=== PATIENT | male | born 1960 | race Caucasian/White ===

== ENCOUNTER 2018-06-28 17:49 | Inpatient (IN) | payer MEDICAID, OTHER ==
[~2018-06-28] VITALS: Ht 180.3 cm; Wt 135.7 kg
[2018-06-28] MEDS ORDERED: cloNIDine HCL 0.1 MG TAB PO ONE ×3 (18:30→23:15)
[2018-06-28 19:38] LABS: Basophils # (auto) 0.1 uL; Basophils % (auto) 0.8 % (0.0-2.0); Eosinophils # (auto) 0.7 uL; Hemoglobin 15.1 g/dL (13.5-17.5); Lymphocytes # (auto) 3.2 uL; Lymphocytes % (auto) 28.6 % (10.0-50.0); Mean Corpuscular Hemoglobin 26.9 pg (28.0-32.0); Monocytes # (auto) 0.9 uL
[2018-06-28 19:41] LABS: Eosinophils % (auto) 6.4 % (0.0-7.0); Hematocrit 45.8 % (41.0-53.0); Mean Corpuscular Hgb Conc. 32.9 g/dL (32.0-36.0); Mean Corpuscular Volume 81.8 fL (80.0-100.0); Monocytes % (auto) 8.6 % (0.0-12.0); Neutrophils # (auto) 6.1 uL; Neutrophils % (auto) 55.6 % (37.0-80.0); Nucleated Red Blood Cells % 0.2 %; Platelet Count (auto) 201 10^3/uL (140-450); Red Cell Distribution Width 15.3 % (11.8-14.3)
[2018-06-28 19:54] LABS: Alanine Aminotransferase 23 U/L (16-61); Albumin 3.5 g/dL (3.4-5.0); Anion Gap 8 (5-15); Aspartate Aminotransferase 19 U/L (15-37); BUN/Creatinine Ratio 9.7; Blood Urea Nitrogen 16 mg/dL (7-18); Calcium 8.4 mg/dL (8.5-10.1); Carbon Dioxide 26 mmol/L (21-32); Chloride 108 mmol/L (98-107); GFR African American 56 mL/min; GFR Non-African American 46 mL/min; Glucose 87 mg/dL (74-106); Potassium 4.4 mmol/L (3.5-5.1); Sodium 142 mmol/L (136-145)
[2018-06-28 20:02] LABS: Alkaline Phosphatase 55 U/L (45-117); Bilirubin, Total 0.3 mg/dL (0.2-1.0); Total Protein 7.3 g/dL (6.4-8.2)
[2018-06-28 21:05] LABS: Amylase 48 U/L (25-115); Lipase 194 U/L (73-393)
[2018-06-28 21:15] LABS: INR 0.94 (0.9-1.15); Partial Thromboplastin Time 28.3 sec (23.78-33.04); Prothrombin Time 10.1 sec (9.27-12.13)
[2018-06-28] MEDS ORDERED: SODIUM CHLORIDE 0.9% 1,000 ML IV ONE (21:45)
[2018-06-28 23:23] LABS: Urine Bacteria FEW /hpf (None Seen); Urine Blood TRACE /uL (Negative); Urine Hyaline Cast FEW /lpf (0 - 2); Urine Specific Gravity 1.021 (1.001-1.035); Urine WBC 2 /hpf (0 - 3)
[2018-06-29] MEDS ORDERED: ONDANSETRON HCL 4 MG/2 ML VIAL IV PRN (00:45)
[2018-06-29] MEDS ORDERED: LORazepam 0.5 MG TAB PO PRN (01:00)
[2018-06-29] MEDS ORDERED: PANTOPRAZOLE 40 MG/10 ML VIAL IV ONE (01:13)
[2018-06-29] MEDS: cloNIDine HCL 0.1 MG TAB PO PRN ×3 (02:04→22:12)
[2018-06-29] MEDS ORDERED: hydrALAZINE HCL 20 MG/ML VL IV ONE (03:30)
[2018-06-29] MEDS ORDERED: ENALAPRILAT 1.25 MG/ML-1ML VIAL IV ONE (04:15)
[2018-06-29] MEDS: metroNIDAZOLE 500MG/100ML 100 ML IV SCH ×3 (06:04→22:13)
[2018-06-29 06:20] VITALS: BP 159/88
--- NOTE | 2018-06-29 06:20 | NUR ---
PATIENT STOOL OCCULT BLOOD SAMPLE COLECTED AND SENT TO LAB. STOOL WAS BURGUNDY/RED IN COLOR.
--- NOTE | 2018-06-29 07:17 | NUR ---
PATIENT STATES THE ONLY HOME MED HE TAKES IS MOTRIN 800 MG. HE IS NON COMPLIANT WITH HIS HOME BLOOD PRESSURE MEDICATION AND DOES NOT KNOW THE NAME OF IT.
--- NOTE | 2018-06-29 07:30 | NUR ---
Opening Shift Note Assumed care of patient, awake and alert, oriented x 4 and verbally responsive. No S/S of distress/SOB or pain. Instructed on POC and to call for assist PRN, will continue to monitor for changes Q1hr and PRN.
--- NOTE | 2018-06-29 07:30 | NUR ---
Opening Shift Note Assumed care of patient, awake and alert. No S/S of distress/SOB or pain. Instructed on POC and to call for assist PRN, will continue to monitor for changes Q1hr and PRN.
[2018-06-29 08:00] VITALS: BP 177/102
--- NOTE | 2018-06-29 08:01 | NUR ---
Patient refused lab drawn.
[2018-06-29] MEDS: PANTOPRAZOLE 40 MG/10 ML VIAL IV SCH (08:58)
[2018-06-29] MEDS: cefTRIAXone 1GM/50ML D5W 50 ML IV SCH (08:59)
[2018-06-29] MEDS: METOPROLOL TARTRATE 25 MG TAB PO SCH ×2 (08:59→20:42)
[2018-06-29 10:53] LABS: Hematocrit 42.5 % (41.0-53.0)
[2018-06-29 15:25] VITALS: BP 128/60
[2018-06-29 17:00] VITALS: BP 121/86
[2018-06-29 20:00] VITALS: BP 151/74
--- NOTE | 2018-06-29 20:43 | NUR ---
PT'S HEART RATE 52;LOPRESSOR HELD. CATAPRESS WILL BE GIVEN INSTEAD.
[2018-06-29 21:31] VITALS: BP 168/98
--- NOTE | 2018-06-30 04:28 | NUR ---
PT REFUSED LAB DRAW.
[2018-06-30 05:00] VITALS: BP 138/79
[2018-06-30] MEDS: metroNIDAZOLE 500MG/100ML 100 ML IV SCH ×3 (05:14→22:35)
--- NOTE | 2018-06-30 08:00 | NUR ---
Opening Shift Note Assumed care of patient, awake, alert and oriented X4. No S/S of distress/SOB or pain. IV to right forearm, 20 gauge, patent and saline locked. Instructed on POC and to call for assist PRN, verbalized understanding. Bed locked, in lowest position, call light within reach, will continue to monitor for changes Q1hr and PRN.
[2018-06-30 09:00] VITALS: BP 151/71
[2018-06-30] MEDS: cefTRIAXone 1GM/50ML D5W 50 ML IV SCH (09:33)
[2018-06-30] MEDS: METOPROLOL TARTRATE 25 MG TAB PO SCH ×2 (10:00→22:00)
[2018-06-30 13:00] VITALS: BP 161/81
[2018-06-30 13:18] LABS: Basophils # (auto) 0.1 uL; Basophils % (auto) 0.8 % (0.0-2.0); Eosinophils # (auto) 0.5 uL; Eosinophils % (auto) 6.5 % (0.0-7.0); Hematocrit 42.4 % (41.0-53.0); Lymphocytes # (auto) 2.2 uL; Lymphocytes % (auto) 26.2 % (10.0-50.0); Mean Corpuscular Hgb Conc. 32.9 g/dL (32.0-36.0); Mean Corpuscular Volume 81.9 fL (80.0-100.0); Monocytes # (auto) 0.7 uL; Monocytes % (auto) 7.9 % (0.0-12.0); Neutrophils # (auto) 4.9 uL; Neutrophils % (auto) 58.6 % (37.0-80.0); Nucleated Red Blood Cells % 0.1 %; Platelet Count (auto) 191 10^3/uL (140-450); Red Blood Cells 5.18 10^6/uL (4.5-5.90); Red Cell Distribution Width 15.2 % (11.8-14.3); White Blood Cell 8.3 10^3/uL (4.4-10.8)
--- NOTE | 2018-06-30 13:37 | NUR ---
ROUNDS Dr Anne Navarrete at bedside for rounds, no new orders received at this time. Plan of care discussed with patient, verbalized understanding.
[2018-06-30] MEDS: PANTOPRAZOLE 40 MG/10 ML VIAL IV SCH (13:42)
[2018-06-30 13:46] LABS: Albumin 3.2 g/dL (3.4-5.0); BUN/Creatinine Ratio 13.8; Calcium 8.5 mg/dL (8.5-10.1); Potassium 3.8 mmol/L (3.5-5.1)
[2018-06-30 13:49] LABS: Bilirubin, Total 0.4 mg/dL (0.2-1.0); Total Protein 6.7 g/dL (6.4-8.2)
[2018-06-30 16:20] VITALS: BP 197/121
[2018-06-30] MEDS: cloNIDine HCL 0.1 MG TAB PO PRN ×2 (16:27→22:10)
[2018-06-30] MEDS ORDERED: RANI-226 (16:56)
[2018-06-30] MEDS ORDERED: IBUP800T24 (16:56)
[2018-06-30] MEDS ORDERED: IPR002IS (16:56)
--- NOTE | 2018-06-30 19:19 | NUR ---
Care endorsed to KERI Davis, night nurse.
--- NOTE | 2018-06-30 19:30 | NUR ---
Opening Shift Note Assumed care of patient, awake and alert. No S/S of distress/SOB or pain. Patient has s/s of high anxiety. Instructed on POC and to call for assist PRN, will continue to monitor for changes Q1hr and PRN.
--- NOTE | 2018-06-30 21:29 | NUR ---
patient is very anxious about IV insertion. Due to failed 1st attempt patient stated that he does not want to be bothered for 2 hours. Explained to patient regard medication due, but patient stated that he does not want anything done to him for 2 hours. Will continue to monitor and administer medication at a later time.
[2018-06-30 22:00] VITALS: BP 180/114
--- NOTE | 2018-06-30 22:40 | NUR ---
IV insertion IV access obtained, via clean sterile technique by inserting 22 gauge catheter at right FA after 2 attempts. IV secured properly. No trauma to site. Patient tolerated well.
--- NOTE | 2018-07-01 05:23 | NUR ---
PATIENT REFUSE THE 5 0CLOCK VITALS SIGNS
[2018-07-01] MEDS: metroNIDAZOLE 500MG/100ML 100 ML IV SCH ×4 (06:20→22:11)
[2018-07-01 08:00] VITALS: BP 148/102
--- NOTE | 2018-07-01 08:00 | NUR ---
Opening Shift Note Assumed care of patient, awake, alert and oriented X4. No S/S of distress/SOB or pain. IV to right forearm, 22 gauge, patent and saline locked. Instructed on POC and to call for assist PRN, verbalized understanding. Bed locked, in lowest position, call light within reach, will continue to monitor for changes Q1hr and PRN.
[2018-07-01] MEDS: PANTOPRAZOLE 40 MG/10 ML VIAL IV SCH (10:00)
[2018-07-01] MEDS: cefTRIAXone 1GM/50ML D5W 50 ML IV SCH (10:00)
[2018-07-01] MEDS: METOPROLOL TARTRATE 25 MG TAB PO SCH ×2 (10:00→22:00)
[2018-07-01] MEDS: cloNIDine HCL 0.1 MG TAB PO PRN ×2 (10:02→22:11)
[2018-07-01 12:37] VITALS: BP 159/118
[2018-07-01 17:07] VITALS: BP 164/106
--- NOTE | 2018-07-01 19:19 | NUR ---
Care endorsed to KERI Davis, night nurse.
[2018-07-01] MEDS ORDERED: GOLYTELY 4L KIT PO ONE ×2 (20:30→21:00)
--- NOTE | 2018-07-01 20:35 | NUR ---
Paged Dr. Jaime regarding Go Lytely order. Orders clarified to administer 2/3 now and 1/3 after 4 am 06/04. Printed Consents and will obtain now also.
[2018-07-01 22:00] VITALS: BP 175/99
--- NOTE | 2018-07-02 | NUR ---
The patient states that he has had multiple BMs but could not describe the appearance of the stool. The patient was instructed leave his next BM in the toilet without flushing to be evaluated. At this time, the 50% of the Go Lytely has been taken by the patient.
[2018-07-02] MEDS ORDERED: GOLYTELY 4L KIT PO ONE ×2 (04:00→12:00)
--- NOTE | 2018-07-02 04:55 | NUR ---
The patient is continuing to drink Go Lytely. 1/3 of the solution still remains. The patient has been encouraged to continue to drink the Go Lytely. He states that he did not have another BM and does not know the appearance of his stool.
[2018-07-02 05:00] VITALS: BP 193/125
--- NOTE | 2018-07-02 05:30 | NUR ---
Patient states that the appearance of his stool is currently yellow and clear.
[2018-07-02] MEDS: metroNIDAZOLE 500MG/100ML 100 ML IV SCH ×3 (06:00→22:00)
--- NOTE | 2018-07-02 07:40 | NUR ---
Patient sitting in bed, awake, oriented x4. No acute distress noted. Patient wearing civilian clothes. Explained to patient he will be wearing hospital gown before the Colonoscopy. Patient verbalized understanding.
--- NOTE | 2018-07-02 07:40 | NUR ---
Care endorsed to KERI Lancaster
[2018-07-02] MEDS: cloNIDine HCL 0.1 MG TAB PO PRN (08:14)
--- NOTE | 2018-07-02 08:14 | NUR ---
BP = 197/84. Catapres 0.1 mg PO given as ordered for SBP>160. Patient refused the Rocephin IV.
[2018-07-02] MEDS: cefTRIAXone 1GM/50ML D5W 50 ML IV SCH (08:16)
[2018-07-02] MEDS ORDERED: SODIUM CHLORIDE LOCK 10 ML ONE (08:29)
[2018-07-02] MEDS ORDERED: diphenhdrAMINE HCL 50 MG/1 ML VL ONE (08:29)
[2018-07-02 08:41] VITALS: BP 197/89
[2018-07-02] MEDS: METOPROLOL TARTRATE 25 MG TAB PO SCH ×2 (10:17→22:04)
--- NOTE | 2018-07-02 10:17 | NUR ---
BP = 197/132, Heart Rate = 61. Metoprolol PO with sips of water given as ordered. Patient stated his blood pressure will always be high. Family member at bedside.
[2018-07-02] MEDS: PANTOPRAZOLE 40 MG/10 ML VIAL IV SCH (10:18)
--- NOTE | 2018-07-02 10:45 | NUR ---
Patient transferred via bed to Pre Op for Colonoscopy. Pre Op RN made aware patient has elevated blood pressure, fear of needles, IV line on the right forearm intact and patent, refused to have a new IV line inserted. Family members at bedside. Endorsed patient to Pre Op RN.
[2018-07-02] MEDS: fentaNYL CITRATE 100 MCG/2 ML VL ONE ×3 (11:50→11:58)
[2018-07-02] MEDS: MIDAZOLAM HCL 5 MG/ML-1ML VIAL ONE ×3 (11:50→11:58)
--- NOTE | 2018-07-02 12:49 | NUR ---
Nutrition Assessment Notes Please see attached link for complete assessment Est. Needs ABW [id number] kcal (17-20 kcal/kgABW), 85-107 gms pro (0.8-1.0 gms/kgABW r/t elev RFT). Will continue to monitor pertinent labs and reassess nutrient needs prn Addendum: 07/02/18 at [address] Amended: Links added.
--- NOTE | 2018-07-02 12:50 | NUR ---
Received report from DIRECTOR OF FEDERAL SALES that patient had Colonoscopy with polypectomy, found sigmoid mass, biopsy done, found diverticulosis; patient to be on Clear Liquid diet as ordered.
--- NOTE | 2018-07-02 13:00 | NUR ---
PT NOT IN ROOM FOR 1300 VITALS
--- NOTE | 2018-07-02 13:09 | NUR ---
Anne Coronado came over. made aware patient had Colonoscopy with biopsy done today, blood pressure elevated, with Surgical Consult for sigmoid mass.
--- NOTE | 2018-07-02 13:10 | NUR ---
Patient back to room. Pawan Coronado. came over but patient in the bathroom at this time. Daughter said patient had loose stools. Dr. Navarrete to come back. put in new orders.
[2018-07-02] MEDS ORDERED: LISINOPRIL 20 MG TAB PO ONE (13:15)
--- NOTE | 2018-07-02 13:22 | NUR ---
Dr. Navarrete, O. at bedside. explained to patient he's not going home today. Patient came from the bathroom, lethargic. Dr. Navarrete ordered Vasotec IVP one time only for elevated BP.
[2018-07-02] MEDS ORDERED: LORazepam 0.5 MG TAB PO PRN (13:30)
[2018-07-02] MEDS ORDERED: ENALAPRILAT 1.25 MG/ML-1ML VIAL IV ONE ×3 (13:30→14:30)
--- NOTE | 2018-07-02 13:40 | NUR ---
Called Pharmacy. Spoke with Pharmacist Lizeth regarding one time order for Vasotec Inj 1.25 mg. Lizeth said patient has to be on Telemetry if patient will receive Vasotec Inj. Will call Dr. Navarrete.
--- NOTE | 2018-07-02 13:42 | NUR ---
Lisinopril 20 mg PO given as ordered.
--- NOTE | 2018-07-02 13:42 | NUR ---
BP = 154/108, Heart Rate = 57, O2 Sat = 94% on room air.
--- NOTE | 2018-07-02 14:12 | NUR ---
Torch Heater transferred my call to Pawan Coronado. office; phone number transferred to a Fax machine, two times.
--- NOTE | 2018-07-02 14:14 | NUR ---
Charge Nurse Albina made aware that Pharmacist cannot verify the Vasotec IVP as ordered by Anne Coronado because patient is on Med-Surg; patient has to be on Telemetry as per Pharmacy.
--- NOTE | 2018-07-02 14:28 | NUR ---
Charge Nurse Albina called the Pharmacist regarding the Vasotec Inj one time order; patient to be upgraded to Telemetry.
--- NOTE | 2018-07-02 14:40 | NUR ---
Report given to KERI Onofre. Endorsed patient to Jemima. Patient stated he's okay to receive the Flagyl IV as ordered.
[2018-07-02 17:05] VITALS: BP 126/73
--- NOTE | 2018-07-02 17:38 | NUR ---
IV RED AND PUFFY. PATIENT REFUSED TO LET ME REMOVE IT AT THIS WELL REFUSING TO LET ME START A NEW IV.
--- NOTE | 2018-07-02 19:05 | NUR ---
OPEN SHIFT NOTE PATIENT IS ALERT AND ORIENTED X4, ROOM AIR. PATIENT IS REFUSING TO HAVE IV STARTED. IS AT BEDSIDE. POC DISCUSSED AND QUESTIONS ANSWERED. BED IS LOCKED IN LOWEST POSITION AND CALL LIGHT IS WITHIN REACH. WILL CONTINUE TO ROUND Q1HR AND PRN.
[2018-07-02 20:05] VITALS: BP 163/76
[2018-07-02 22:00] VITALS: BP 163/76
[2018-07-02] MEDS: LISINOPRIL 20 MG TAB PO SCH (22:05)
[2018-07-03] VITALS (7 sets, daily range): BP systolic 149–184; BP diastolic 74–109
--- NOTE | 2018-07-03 05:45 | NUR ---
patient refusing to have IV started
[2018-07-03] MEDS: metroNIDAZOLE 500MG/100ML 100 ML IV SCH ×3 (06:00→21:44)
[2018-07-03] MEDS: cloNIDine HCL 0.1 MG TAB PO PRN ×2 (07:05→17:04)
--- NOTE | 2018-07-03 08:00 | NUR ---
OPENING NOTE ASSUMED CARE OF PATIENT AWAKE, ALERT, AND ORIENTED, SITTING UP IN A CHAIR. UPDATED PT ON POC AND ALL QUESTIONS ANSWERED. PT STATING "I AM LEAVING TODAY NO MATTER WHAT". ADVISED PATIENT TO SPEAK WITH SURGEON AND HOSPITALIST BEFORE MAKING A DECISION. PT HAS NO IV ACCESS AND IS REFUSING ANY ATTEMPT TO START ONE. EDUCATED PT ON IMPORTANCE AND SAFETY OF IV ACCESS. WILL CONTINUE TO MONITOR Q1H AND PRN.
--- NOTE | 2018-07-03 08:21 | NUR ---
SURGICAL CONSULT DR. STARK AT BEDSIDE DISCUSSING POC WITH PT. MD CURRENTLY WAITING FOR PATHOLOGY RESULTS. ORDERS RECEIVED TO PLACE PT ON CLEAR LIQUID DIET. NO FURTHER ORDERS RECEIVED AT THIS TIME.
[2018-07-03] MEDS: cefTRIAXone 1GM/50ML D5W 50 ML IV SCH (09:00)
[2018-07-03] MEDS: PANTOPRAZOLE 40 MG/10 ML VIAL IV SCH (10:00)
[2018-07-03] MEDS: LISINOPRIL 20 MG TAB PO SCH ×2 (10:15→21:46)
[2018-07-03] MEDS: METOPROLOL TARTRATE 25 MG TAB PO SCH ×2 (10:15→21:45)
--- NOTE | 2018-07-03 10:15 | NUR ---
TELEMETRY MONITORING PT IS REFUSING TELE MONITOR AT THIS TIME. MADE AWARE. TELE BOX REMOVED AND SENT TO JAZIEL. Addendum: 07/03/18 at 1143 by Gypsy Mesa RN RN ALSO INFORMED MD OF PATIENTS REFUSAL OF LAB DRAWS AND IV ACCESS. MD AWARE. NO NEW ORDERS RECEIVED.
[2018-07-03] MEDS ORDERED: GOLYTELY 4L KIT PO ONE ×2 (13:15→13:30)
--- NOTE | 2018-07-03 13:16 | NUR ---
SPOKE TO MD RECEIVED PHONE CALL FROM DR. STARK. ORDERS RECEIVED FOR GOLYTLEY BOWEL PREP AND TO MAKE PT NPO. PT TO HAVE PROCEDURE 07/04/18. MD STATING HE WILL PLACE ADDITIONAL ORDERS AT A LATER TIME. Addendum: 07/03/18 at 1337 by Gypsy Mesa RN RN CORRECTION: NPO AFTER MIDNIGHT.
--- NOTE | 2018-07-03 13:38 | NUR ---
BOWEL PREP NEETA BOWEL PREP STARTED PER MD ORDER. PT EDUCATED ON IMPORTANCE OF COMPLETING BOWEL PREP IN REGARDS TO PROCEDURE. PT UPSET THAT HE HAS TO COMPLETE BOWEL PREP AGAIN, BUT VERBALIZED UNDERSTANDING. WILL CONTINUE TO REINFORCE.
[2018-07-03] MEDS: D5W/SOD CHL 0.45%/KCL 20MEQ 1,000 ML IV SCH ×2 (14:15→21:44)
--- NOTE | 2018-07-03 14:21 | NUR ---
IV insertion IV access obtained, via clean sterile technique by inserting 22 gauge catheter at ELLIOTT after 2 attempt(s) by RN, Ayla. IV secured properly. No trauma to site. Patient tolerated well.
--- NOTE | 2018-07-03 14:36 | NUR ---
SURGICAL CONSENTS PATIENT/ EXPRESSED HAVING NO FURTHER QUESTIONS IN REGARDS TO SCHEDULED PROCEDURE. CONSENTS SIGNED BY FELICE, PATIENTS . NPO STATUS REINFORCED WITH PT/, VERBALIZED UNDERSTANDING.
--- NOTE | 2018-07-03 15:23 | NUR ---
SPOKE TO MD RECEIVED PHONE CALL FROM DR. STARK. ORDERS RECEIVED FOR ECHOCARDIOGRAM AND CARDIOLOGY CONSULT FOR SURGICAL CLEARANCE. NO FURTHER ORDERS AT THIS TIME.
[2018-07-03] MEDS ORDERED: OPTISON 3ml Vial for INJ IV ONE (16:17)
--- NOTE | 2018-07-03 16:38 | NUR ---
ECHO AUTOMOBILE RENTAL AGENT AT BEDSIDE.
[2018-07-03] MEDS ORDERED: HCTZ 25 MG TAB PO ONE (17:45)
--- NOTE | 2018-07-03 17:50 | NUR ---
CARDIOLOGY CONSULT. DR. LIZ AT BEDSIDE DISCUSSING POC WITH PT.
--- NOTE | 2018-07-03 19:30 | NUR ---
RECEIVED PATIENT IN BED, AAOX4. NO DISTRESS NOTED. AFEBRILE. NO SOB NOTED. DENIES ANY PAIN NOW. FAMILY IS IN THE ROOM. PATIENT IS ANXIOUS. POCS DISCUSSED WITH PATIENT AND SHOWED UNDERSTANDING. BED KEPT ON LOWEST POSITION. SIDE RAILS UP. CALL LIGHT/TABLE IN REACH. KEPT COMFORTABLE.
--- NOTE | 2018-07-03 20:30 | NUR ---
OIL DISTRIBUTOR AT BEDSIDE AND MADE HER AWARE OF PATIENT'S PROCEDURE IN THE AM. NPO AND CHG BATH PART OF THE PRE OP PROCEDURE.
[2018-07-03] MEDS: TEMAZEPAM 15 MG CAP PO PRN (21:45)
--- NOTE | 2018-07-03 23:00 | NUR ---
IV ACCESS IS INFILTRATED. ATTEMPTED TO START NEW IV ACCESS, BUT PATIENT REFUSED. CONSEQUENCES EXPLAINED, BUT HE TOLD ME COME BACK AT 0600 IN THE AM. NOTED.
[2018-07-04] VITALS (10 sets, daily range): BP systolic 91–175; BP diastolic 58–127
--- NOTE | 2018-07-04 06:00 | NUR ---
STARTED A NEW IV ACCESS ON THE RIGHT HAND, GAUGE 22. BENIGN AND PATENT.
[2018-07-04] MEDS: metroNIDAZOLE 500MG/100ML 100 ML IV SCH ×3 (06:14→22:00)
[2018-07-04] MEDS: D5W/SOD CHL 0.45%/KCL 20MEQ 1,000 ML IV SCH (06:14)
--- NOTE | 2018-07-04 06:20 | NUR ---
ON BED, AWAKE. STABLE. NO DISTRESS NOTED. FOR MORE CARE AND MANAGEMENT.
[2018-07-04] MEDS: PANTOPRAZOLE 40 MG/10 ML VIAL IV SCH (08:59)
[2018-07-04] MEDS: cefTRIAXone 1GM/50ML D5W 50 ML IV SCH (08:59)
[2018-07-04] MEDS: HCTZ 25 MG TAB PO SCH (09:00)
[2018-07-04] MEDS: LISINOPRIL 20 MG TAB PO SCH ×2 (09:01→22:00)
[2018-07-04] MEDS ORDERED: ENALAPRILAT 1.25 MG/ML-1ML VIAL IV ONE (10:00)
[2018-07-04] MEDS: METOPROLOL TARTRATE 25 MG TAB PO SCH ×2 (10:00→22:00)
--- NOTE | 2018-07-04 11:15 | NUR ---
Patient taken down to Pre-Op with telemonitor in place, no s/s of distress noted/stated.
[2018-07-04] MEDS ORDERED: ceFAZolin 1GM/50ML 50 ML IV ONE (13:07)
[2018-07-04] MEDS ORDERED: SUCCINYLCHOLINE CHLORIDE 20 MG/ML 10ML VIAL IV ONE (13:12)
[2018-07-04] MEDS ORDERED: MIDAZOLAM HCL 1MG/1ML-2 ML VIAL ONE ×4 (13:14→15:44)
[2018-07-04] MEDS ORDERED: HYDROmorphone HCL 2 MG/ML VL ONE ×3 (13:14→16:03)
[2018-07-04] MEDS ORDERED: fentaNYL CITRATE 5 ML ONE ×2 (13:14→14:38)
[2018-07-04] MEDS ORDERED: fentaNYL CITRATE 100 MCG/2 ML VL ONE (13:14)
[2018-07-04] MEDS ORDERED: DEXAMETHASONE SOD PHOS 10MG/1ML VIAL INJ ONE (13:21)
[2018-07-04] MEDS ORDERED: PROPOFOL 10 MG/ML 20 ML IV ONE (13:21)
[2018-07-04] MEDS ORDERED: ROCURONIUM 10MG/ML 10ML VIAL IV ONE ×2 (14:06→15:31)
[2018-07-04] MEDS ORDERED: KETOROLAC TROMETH 30 MG/ML 1ML VIAL IV ONE (15:00)
[2018-07-04] MEDS ORDERED: LABETALOL HCL 5 MG/ML 4ML SYRINGE IV PRN (15:00)
[2018-07-04] MEDS ORDERED: HYDROmorphone HCL 2 MG/ML VL IV PRN (15:00)
[2018-07-04] MEDS ORDERED: ONDANSETRON HCL 4 MG/2 ML VIAL IV ONE (15:00)
[2018-07-04] MEDS ORDERED: MORPHINE SULFATE 4 MG/ML SYR/VIAL IV PRN (15:00)
[2018-07-04] MEDS ORDERED: ACCU-CHEK COMFORT CURVE STRIP VI ONE (15:00)
[2018-07-04] MEDS ORDERED: MIDAZOLAM HCL 1MG/1ML-2 ML VIAL IV PRN (15:00)
[2018-07-04] MEDS ORDERED: MORPHINE SULFATE 4 MG/ML SYR/VIAL IV ONE (16:00)
[2018-07-04] MEDS: hydrALAZINE HCL 20 MG/ML VL IV PRN ×3 (17:01→19:15)
[2018-07-04] MEDS: HYDROmorphone HCL 2 MG/ML VL IV PRN ×2 (17:13→19:53)
--- NOTE | 2018-07-04 17:27 | NUR ---
Respiratory note: ADVANCED ETT 2M TO 24CM LIP LINE WITHOUT INCIDENT S/P CXR. DECREASED FI02 TO 40% AND INCREASED VT TO 600 PER 'S ORDERS. SPUTUM SAMPLE OBTAINED AND SENT TO LAB
[2018-07-04] MEDS ORDERED: MIDAZOLAM DRIP 50 mg/50mL 50 ML IV ONE (17:29)
[2018-07-04] MEDS: fentaNYL Drip 2500mCg/250mlNS 250 ML IV SCH (17:38)
[2018-07-04] MEDS: cloNIDine 0.1 mg/24hr 7 DAY PATCH TD SCH (17:45)
[2018-07-05] VITALS (99 sets, daily range): BP systolic 110–249; BP diastolic 62–207
--- NOTE | 2018-07-05 00:20 | NUR ---
RECEIVED PATIENT FROM OR PATIENT IS INTUBATED AND SEDATED. INFUSION VERSED AND FENTANYL. ON VENT WITH SETTINGS AC 14, TV 600, PEEP 5, FI02 40%. CARLITOS NOTED ON LEFT WRIST, UNABLE TO CONNECT TO JAZIEL MONITOR. STATUS POST ABDOMINAL SURGERY. MIDLINE INCISION NOTED. DRESSING HAS MINIMAL SANGUINOUS DRAINAGE ON IT. NIRMALA TO THE LEFT LOWER QUADRANT DRAINING SANGUINOUS OUTPUT. NG TO LEFT NARE CHECKED FOR PLACEMENT, THEN PUT ON LIS. DEL CID CATH DRAINING CLEAR YELLOW URINE TO GRAVITY. LEFT SUBCLAVIAN INFUSING DRIPS AND D5.45NS. WILL CLOSELY MONITOR.
--- NOTE | 2018-07-05 01:00 | NUR ---
MORNING HYGIENE CARE PATIENT CLEANSED WITH CHG WIPES. PARTIAL LINEN CHANGE DONE. GOWN CHANGED. ABDOMINAL BINDER APPLIED. PATIENT TOLERATED IT WELL.
[2018-07-05] MEDS: D5W/SOD CHL 0.45%/KCL 20MEQ 1,000 ML IV SCH ×4 (01:13→11:35)
[2018-07-05] MEDS: MIDAZOLAM DRIP 50 mg/50mL 50 ML IV SCH ×2 (01:15→17:38)
[2018-07-05] MEDS: metroNIDAZOLE 500MG/100ML 100 ML IV SCH ×3 (04:11→20:46)
[2018-07-05] MEDS: ENALAPRILAT 1.25 MG/ML-1ML VIAL IV PRN ×2 (04:19→06:46)
[2018-07-05] MEDS ORDERED: metroNIDAZOLE 500MG/100ML 100 ML IV SCH (06:00)
[2018-07-05 06:06] LABS: Basophils # (auto) 0 uL; Basophils % (auto) 0.3 % (0.0-2.0); Eosinophils # (auto) 0 uL; Eosinophils % (auto) 0.4 % (0.0-7.0); Hematocrit 38.1 % (41.0-53.0); Hemoglobin 12.6 g/dL (13.5-17.5); Lymphocytes # (auto) 1.4 uL; Lymphocytes % (auto) 15.3 % (10.0-50.0); Mean Corpuscular Hemoglobin 27.1 pg (28.0-32.0); Mean Corpuscular Hgb Conc. 33.1 g/dL (32.0-36.0); Monocytes % (auto) 10.2 % (0.0-12.0); Neutrophils # (auto) 6.9 uL; Neutrophils % (auto) 73.8 % (37.0-80.0); Nucleated Red Blood Cells % 0.1 %; Platelet Count (auto) 195 10^3/uL (140-450); Red Blood Cells 4.64 10^6/uL (4.5-5.90); Red Cell Distribution Width 15.6 % (11.8-14.3); White Blood Cell 9.3 10^3/uL (4.4-10.8)
[2018-07-05 06:38] LABS: Albumin 2.6 g/dL (3.4-5.0); Calcium 7.4 mg/dL (8.5-10.1); Potassium 3.5 mmol/L (3.5-5.1)
[2018-07-05 06:42] LABS: BUN/Creatinine Ratio 8.5; Bilirubin, Total 0.4 mg/dL (0.2-1.0); Total Protein 5.7 g/dL (6.4-8.2)
--- NOTE | 2018-07-05 07:00 | NUR ---
REPORT RECEIVED FROM PULP MAKER NURSE. PATIENT RESTING IN BED AT THIS TIME, INTUBATED AND SEDATED BUT RESPONSIVE. RESPIRATIONS EVEN AND UNLABORED. NO SIGNS OF ACUTE DISTRESS NOTED.BED IN LOW POSITION. WILL CONTINUE TO MONITOR.
[2018-07-05] MEDS: cloNIDine 0.1 mg/24hr 7 DAY PATCH TD SCH (07:38)
--- NOTE | 2018-07-05 08:15 | NUR ---
PAGED DR Perla NUNEZ TO INFORM OF NEW CONSULT.
[2018-07-05] MEDS: cefTRIAXone 1GM/50ML D5W 50 ML IV SCH (08:28)
[2018-07-05] MEDS ORDERED: cefTRIAXone SOD 1,000 MG VL IV SCH (09:00)
[2018-07-05] MEDS: PANTOPRAZOLE 40 MG/10 ML VIAL IV SCH (09:46)
[2018-07-05] MEDS: LABETALOL HCL 5 MG/ML ML 20ML VIAL IV PRN (09:46)
--- NOTE | 2018-07-05 09:55 | NUR ---
ARTERIAL LINE DISCONTINUED FROM LEFT RADIAL ARTERY DUE TO SWELLING AND LINE WAS NO LONGER PATENT. WILL INFORM .
[2018-07-05] MEDS: METOPROLOL TARTRATE 25 MG TAB PO SCH ×2 (10:00→20:46)
[2018-07-05] MEDS: LISINOPRIL 20 MG TAB PO SCH ×2 (10:00→20:47)
[2018-07-05] MEDS: HCTZ 25 MG TAB PO SCH (10:00)
[2018-07-05] MEDS ORDERED: FUROSEMIDE 20 MG/2 ML VIAL IV ONE (10:30)
[2018-07-05] MEDS ORDERED: TPN PER PHARMACY 0 ML IV SCH (10:30)
--- NOTE | 2018-07-05 10:32 | NUR ---
DR WADE AT BEDSIDE TO ASSESS PATIENT AND DISCUSS PLAN OF CARE. PER MD START NITRO DRIP TO DECREASE BLOOD PRESSURE. PER MD ONCE BLOOD PRESSURE DECREASED TO NORMAL RANGE MAY CPAP PATIENT.
[2018-07-05 11:17] LABS: Phosphorus 3.6 mg/dL (2.5-4.90)
[2018-07-05 11:21] LABS: Pre Albumin 19.6 mg/dL (20.0-40.0)
[2018-07-05] MEDS: NITROGLYCERIN 50MG/250ML 250 ML IV SCH (11:21)
--- NOTE | 2018-07-05 14:19 | NUR ---
Nutrition Follow-up Notes (new PN) Wt.: 111.6 kg Pt was sleeping with no family by bedside. per pt records pt had sx for his colon mass with possible colostomy 07/04. pt with no distress noted. pt is currently NPO to be initiated with PN support from tonight @ 44 ml/hr providing 1150 kcals and 50 gm proteins Est. Needs ABW [id number] kcal (17-20 kcal/kgABW), 85-107 gms pro (0.8-1.0 gms/kgABW r/t elev RFT). Will continue to monitor pertinent labs and reassess nutrient needs prn Labs: CREAT 1.42 H, ALB 2.6 L, CA 7.4 L. Skin: Chaitanya scale 21, low risk, incision at site of sx per fire alarm dispatcher. GI: Pt had 1 BM on 07/03 per fire alarm dispatcher. PES: Altered nutrition related lab values r/t current/chronic medical condition aeb elev RFT mild hypoalb Decreased nutrient needs r/t adiposity aeb pt`s high BMI of 41.9 kgm2 Will continue to monitor NPO status, PN tolerance, skin status, pertinent labs and weight trend. F/u in 2-3 days Rec.: 1.) Advance PN support to meet > 75% of needs. 2) advance diet as medically feasible. 2) refer to [facility] dietitian on DC 3) continue current plan of care
--- NOTE | 2018-07-05 14:25 | NUR ---
PATIENT PLACED ON CPAP TOLERATING WELL. WILL CONTINUE TO MONITOR.
--- NOTE | 2018-07-05 15:54 | NUR ---
DR Perla NUNEZ ST BEDSIDE TO ASSESS PATIENT. MD GIVEN ABG RESULTS FROM CPAP. PER MD EXTUBATE PATIENT.
--- NOTE | 2018-07-05 16:12 | NUR ---
RT NOTE: PT. EXTUBATED WITHOUT INCIDENT PER VERBAL ODER. NO STRIDOR NOTED. PT. HR. 99, RR 20, POX 94% ON 35% COOL AEROSOL MASK. KERI VIVEROS AT BEDSIDE. NO S/S OF RESPIRATORY DISTRESS NOTED.
--- NOTE | 2018-07-05 16:12 | NUR ---
PATIENT EXTUBATED AND PLACED ON COOL MIST MASK 35%. SATURATIONS STABLE 94%. NO STRIDOR NOTED.
[2018-07-05] MEDS: fentaNYL Drip 2500mCg/250mlNS 250 ML IV SCH (17:38)
[2018-07-05] MEDS: HYDROmorphone HCL 2 MG/ML VL IV PRN ×2 (17:51→21:55)
[2018-07-05] MEDS ORDERED: DEXTROSE (50%) 50ML SYRG IV SCH (18:00)
[2018-07-05] MEDS: InsuLIN REG 1unit/0.01ml Soln (100units/ml) SC SCH (18:00)
[2018-07-05] MEDS: ACCU-CHEK COMFORT CURVE STRIP VI SCH (18:22)
--- NOTE | 2018-07-05 18:51 | NUR ---
PATIENT PLACED ON 4 LITERS NASAL CANULA. TOLERATING WELL SATURATIONS 94%. WILL CONTINUE TO MONITOR.
--- NOTE | 2018-07-05 19:30 | NUR ---
SHIFT OPENING NOTE RECEIVED PATIENT AWAKE, ALERT AND ORIENTED X4. NO SOB OR DISTRESS NOTED, BUT REPORTS 8/10 ABDOMINAL PAIN. WILL MEDICATE WHEN DUE. ON 4L N/C, POX 96%. NITRO DRIP AT 20 FOR ELEVATED BP. LEFT NARE NG TO LIS. MINIMAL DRAINAGE TO ABDOMINAL MIDLINE DRESSING. NIRMALA DRAIN NOTED TO HAVE SANGUINOUS DRAINAGE. DEL CID IN PLACE DRAINING CLEAR YELLOW URINE. TRIPLE LUMEN SUBCLAVIAN CENTRAL LINE INFUSING [id number] AT 120 AND NITRO DRIP. WILL START TPN TONIGHT. INSTRUCTED ON POC AND TO CALL FOR ASSIST NEEDED. BED IS IN THE LOWEST POSITION WITH SIDE RAILS UP X2, CALL LIGHT IS WITHIN REACH.
[2018-07-05] MEDS ORDERED: TPN PER PHARMACY IV NR ×9 (20:00)
--- NOTE | 2018-07-05 20:00 | NUR ---
TEMP IS AT 100.3 COOLING MEASURES INITIATED. ICE PACKS PLACED IN ARMPITS, COLD WET WASHCLOTH PLACED ON FOREHEAD. PATIENT UNCOVERED. FAN ON.
--- NOTE | 2018-07-05 20:40 | NUR ---
NITRO DRIP INCREASED TO 30 BP REMAINS IN THE 180-190S SYSTOLIC .
--- NOTE | 2018-07-05 21:30 | NUR ---
NITRO DRIP INCREASED TO 40 BP REMAINS AT 170S-180S SYSTOLIC. WILL CONTINUE TO MONITOR.
--- NOTE | 2018-07-05 22:00 | NUR ---
TEMP RECHECK AT 100.0 COOLING MEASURES REMAIN IN PLACE. WILL CONTINUE TO MONITOR.
[2018-07-06] VITALS (90 sets, daily range): BP systolic 108–197; BP diastolic 52–106
[2018-07-06] MEDS: D5W/SOD CHL 0.45%/KCL 20MEQ 1,000 ML IV SCH ×3 (00:02→16:03)
[2018-07-06] MEDS: ACCU-CHEK COMFORT CURVE STRIP VI SCH ×4 (00:03→17:59)
[2018-07-06] MEDS: InsuLIN REG 1unit/0.01ml Soln (100units/ml) SC SCH ×4 (00:04→17:59)
--- NOTE | 2018-07-06 00:30 | NUR ---
ROUNDS PATIENT IS QUIETLY LAYING IN BED SLEEPING. NO SOB, DISTRESS OR PAIN NOTED. BP 120-130S SYSTOLIC. NITRO DRIP AT 40. WILL CONTINUE TO CLOSELY MONITOR.
[2018-07-06] MEDS: HYDROmorphone HCL 2 MG/ML VL IV PRN ×5 (01:56→20:20)
[2018-07-06] MEDS: metroNIDAZOLE 500MG/100ML 100 ML IV SCH ×3 (05:09→21:52)
[2018-07-06 05:14] LABS: Basophils # (auto) 0 uL; Basophils % (auto) 0.3 % (0.0-2.0); Eosinophils # (auto) 0 uL; Eosinophils % (auto) 0.2 % (0.0-7.0); Hematocrit 36.1 % (41.0-53.0); Lymphocytes # (auto) 1.3 uL; Lymphocytes % (auto) 11.6 % (10.0-50.0); Mean Corpuscular Hemoglobin 27.2 pg (28.0-32.0); Mean Corpuscular Hgb Conc. 33.1 g/dL (32.0-36.0); Mean Corpuscular Volume 82.1 fL (80.0-100.0); Monocytes # (auto) 1.5 uL; Monocytes % (auto) 13.1 % (0.0-12.0); Neutrophils # (auto) 8.5 uL; Neutrophils % (auto) 74.8 % (37.0-80.0); Platelet Count (auto) 167 10^3/uL (140-450); White Blood Cell 11.4 10^3/uL (4.4-10.8)
--- NOTE | 2018-07-06 05:15 | NUR ---
MORNING HYGIENE CARE ORAL CARE PERFORMED. FULL BED BATH DONE. FULL LINEN CHANGE DONE, GOWN CHANGED. PATIENT REPOSITIONED FOR COMFORT. TOLERATED IT WELL. MIDLINE INCISION CLEANSED WITH NS. DRIED WITH STERILE GAUZE. PRIMAPORE DRESSING APPLIED TO SITE.
[2018-07-06 05:30] LABS: Albumin 2.6 g/dL (3.4-5.0); Calcium 7.6 mg/dL (8.5-10.1); Magnesium 2.1 mg/dL (1.6-2.6); Potassium 3.6 mmol/L (3.5-5.1)
[2018-07-06 05:33] LABS: BUN/Creatinine Ratio 7.3; Bilirubin, Total 0.5 mg/dL (0.2-1.0); Phosphorus 2.3 mg/dL (2.5-4.90); Total Protein 5.8 g/dL (6.4-8.2)
--- NOTE | 2018-07-06 07:30 | NUR ---
END OF SHIFT REPORT GIVEN AND CARE ENDORSED TO JACKIE SAAVEDRA. PATIENT REMAINS ON NITRO DRIP AT 40. VS STABLE.
--- NOTE | 2018-07-06 08:00 | NUR ---
Opening Shift Note Assumed care of patient, awake and alert. No S/S of distress/SOB or pain. RT NGT to LIS with bilous drain, moderate amount. LT lower abdomen NIRMALA draining serosanguinous minimal amount. Notes stain on lower midline abdominal incision dressing, marked, will continue to monitor. See interventions for complete assessment. Bed locked on low position, side rails up x2, bed alarms on at all times, call eddy within reach, instructed on POC and to call for assist PRN, will continue to monitor for changes Q1hr and PRN.
--- NOTE | 2018-07-06 08:15 | NUR ---
Dr Blake at bedside, updated on patient's status. Will carry out new orders.
--- NOTE | 2018-07-06 09:00 | NUR ---
Patient given IS. Educated on importance of doing IS to expand lung. Patient refusing to do IS at this time.
[2018-07-06] MEDS: METOPROLOL TARTRATE 25 MG TAB PO SCH ×2 (10:00→21:52)
[2018-07-06] MEDS: LISINOPRIL 20 MG TAB PO SCH ×2 (10:00→21:53)
[2018-07-06] MEDS: HCTZ 25 MG TAB PO SCH (10:00)
[2018-07-06] MEDS: PANTOPRAZOLE 40 MG/10 ML VIAL IV SCH (10:03)
[2018-07-06] MEDS: cefTRIAXone 1GM/50ML D5W 50 ML IV SCH (10:03)
[2018-07-06] MEDS: NITROGLYCERIN 50MG/250ML 250 ML IV SCH (10:04)
--- NOTE | 2018-07-06 12:00 | NUR ---
Dr Wynne at bedside to assess patient. Updated on patient's status. Received verbal order to give patient ice chips. Will carry out.
[2018-07-06] MEDS ORDERED: SORE THROAT SPRAY 6OZ BOTTLE MT PRN (15:00)
--- NOTE | 2018-07-06 15:57 | NUR ---
Dr Navarrete at bedside to assess patient. Updated on patient's status. Made aware patient refusing IS. Will continue to instruct and encourage patient. Will carry out new orders.
--- NOTE | 2018-07-06 16:44 | NUR ---
Pramod PT at bedside to evaluate patient but patient sleeping at this time.
--- NOTE | 2018-07-06 19:30 | NUR ---
OPENING SHIFT NOTE ASSUMED CARE, AWAKE AND ORIENTED, STILL IN PAIN, POST-OP MIDLINE ABDOMINAL INCISION, DRY AND INTACT, STILL WITH KAT, NIRMALA DRAIN WITH SEROSANGUINEOUS OUTPUT, DEL CID CATHETER DRAINING TO A LIGHT VANESA URINE, O2/NASAL CANNULA @ 4L/MIN, SPO2 94%. BED IN LOWEST POSITION WITH SIDE RAILS UP, CALL LIGHT WITHIN REACH. WILL CONTINUE CARE. ENCOURAGED TO CALL IF HE NEEDS SOMETHING.
[2018-07-06] MEDS ORDERED: TPN PER PHARMACY IV NR ×10 (20:00)
--- NOTE | 2018-07-06 20:00 | NUR ---
ABLE TO USE INCENTIVE SPIROMETER ABOUT 5 BREATHES ONLY, REACHED 500-1000ML.
--- NOTE | 2018-07-06 21:15 | NUR ---
C/O BACK PAIN, REPOSITIONED AND WARM PACKS APPLIED AT THE BACK
[2018-07-07] VITALS (96 sets, daily range): BP systolic 129–196; BP diastolic 34–117
--- NOTE | 2018-07-07 00:03 | NUR ---
SATURATIONS 91%, INSTRUCTED PATIENT TO PUT O2 BACK ON BUT HE STATES "DONT'T FEEL LIKE HAVING IT JESSICA UP MY NOSE" DISCUSSED THE IMPLICATIONS OF LOW OXYGEN LEVELS AND HE STILL REFUSES. PRIMARY CARE NURSE MIGUELINA AT BEDSIDE WELL.
[2018-07-07] MEDS: ACCU-CHEK COMFORT CURVE STRIP VI SCH ×5 (00:07→23:06)
[2018-07-07] MEDS: NITROGLYCERIN 50MG/250ML 250 ML IV SCH ×4 (00:14→16:38)
[2018-07-07] MEDS: ENALAPRILAT 1.25 MG/ML-1ML VIAL IV PRN ×2 (00:23→08:46)
[2018-07-07] MEDS: HYDROmorphone HCL 2 MG/ML VL IV PRN ×6 (00:50→23:57)
[2018-07-07] MEDS: D5W/SOD CHL 0.45%/KCL 20MEQ 1,000 ML IV SCH ×4 (00:54→19:30)
[2018-07-07] MEDS: metroNIDAZOLE 500MG/100ML 100 ML IV SCH ×3 (05:47→21:51)
[2018-07-07] MEDS: InsuLIN REG 1unit/0.01ml Soln (100units/ml) SC SCH ×5 (05:47→23:05)
--- NOTE | 2018-07-07 07:15 | NUR ---
DR. STARK Provider/Hospitalist at bedside.
[2018-07-07 07:49] LABS: Basophils # (auto) 0.1 uL; Basophils % (auto) 0.5 % (0.0-2.0); Eosinophils # (auto) 0.1 uL; Eosinophils % (auto) 0.9 % (0.0-7.0); Hematocrit 31.1 % (41.0-53.0); Hemoglobin 10.5 g/dL (13.5-17.5); Lymphocytes % (auto) 9.3 % (10.0-50.0); Mean Corpuscular Hemoglobin 27.7 pg (28.0-32.0); Mean Corpuscular Hgb Conc. 33.9 g/dL (32.0-36.0); Mean Corpuscular Volume 81.5 fL (80.0-100.0); Monocytes % (auto) 10.1 % (0.0-12.0); Neutrophils # (auto) 8.1 uL; Neutrophils % (auto) 79.2 % (37.0-80.0); Red Blood Cells 3.81 10^6/uL (4.5-5.90); Red Cell Distribution Width 15.9 % (11.8-14.3); White Blood Cell 10.2 10^3/uL (4.4-10.8)
--- NOTE | 2018-07-07 07:50 | NUR ---
ASSESS- PT. LYING IN BED AWAKE, ALERT AND ORIENTED TIMES FOUR. NO PAIN OR DISCOMFORT AT THIS TIME. PREVIOUSLY MED. BY PEDIATRIC RADIOLOGIST RN. LUNGS CLEAR MICHOACANO. INSPIRATORY AND EXPIRATORY. O2 4L N/C. ADDED HUMIDIFIER. O2 SATS 98%, DECREASED TO 3L N/C. NO SIGNS OF RESP. DISTRESS. NO SOB. ABD. SOFT, LG., TENDER. BOWEL SOUNDS HYPOACTIVE ALL FOUR QUADRANTS. NGT LT. NARE TO LIS WITH BILE COLOR DRAINAGE. F/C TO GRAVITY WITH CLEAR LT. YELLOW URINE. MID-LINE ABD. INCISION WITH DSG. D/I. NIRMALA TO ABD. TO BULB SUCTION WITH SEROSANGINOUS DRAINAGE. RADIAL PULSES STRONG, PALPABLE MICHOACANO. PEDAL PULSES STRONG, PALPABLE MICHOACANO. NO EDEMA. PT. MOVE UPPER AND LOWER EXTREMITIES WITHOUT DIFFICULTY. ABLE TO TURN SELF IN BED. ON TRIDIL GTT. AT 120 MCG. SBP 170'S. PT. DOES NOT HAVE HEADACHE. TLC LT. SUBCLAVIAN INTACT.
[2018-07-07 07:53] LABS: Platelet Count (auto) 132 10^3/uL (140-450)
[2018-07-07 08:07] LABS: Albumin 2.4 g/dL (3.4-5.0); Calcium 7.6 mg/dL (8.5-10.1); Magnesium 2.4 mg/dL (1.6-2.6); Potassium 3.9 mmol/L (3.5-5.1)
[2018-07-07 08:10] LABS: BUN/Creatinine Ratio 7.8; Bilirubin, Total 0.3 mg/dL (0.2-1.0); Phosphorus 1.9 mg/dL (2.5-4.90); Total Protein 5.5 g/dL (6.4-8.2)
--- NOTE | 2018-07-07 08:45 | NUR ---
BP 186/104 ON TRIDIL GTT. AT 140 MCG. MED. PT. WITH VASOTEC 1.25 MG. IVP. MONITORING BP.
--- NOTE | 2018-07-07 08:55 | NUR ---
DR. WADE Provider/Hospitalist at bedside. GAVE UPDATE ON PT. NEW ORDERS RECEIVED. REQUESTED TO CALL DR. STARK AND SEE IF WE CAN GIVE HIM HIS PO BP MEDS AND CLAMP NGT. PAGED DR. STARK.
--- NOTE | 2018-07-07 09:15 | NUR ---
SBP DECREASED TO 150. CONTINUING TO MONITOR BP.
[2018-07-07] MEDS: DILTIAZEM HCL 25 MG/5 ML VIAL IV SCH ×5 (09:35→20:43)
[2018-07-07] MEDS: cefTRIAXone 1GM/50ML D5W 50 ML IV SCH (09:36)
[2018-07-07] MEDS: PANTOPRAZOLE 40 MG/10 ML VIAL IV SCH (09:36)
--- NOTE | 2018-07-07 09:45 | NUR ---
PHYSICAL THERAPY HERE FOR EVAL. PT'S. SBP 170'S-180'S. INFORMED PT ONCE PT'S. BLOOD PRESSURE IMPROVED HE CAN GET PT. OOB.
--- NOTE | 2018-07-07 09:45 | NUR ---
FAMILY VISITING AT THE .
--- NOTE | 2018-07-07 09:50 | NUR ---
returned call Dr. STARK returned call, updated on patient status and reason for call, orders received. Continue care. DOES NOT WANT PT. TO HAVE ANY PO MEDS DUE TO HIS SURGERY.
[2018-07-07] MEDS: LISINOPRIL 20 MG TAB PO SCH ×2 (10:00→20:46)
[2018-07-07] MEDS: METOPROLOL TARTRATE 25 MG TAB PO SCH ×2 (10:00→20:46)
[2018-07-07] MEDS: HCTZ 25 MG TAB PO SCH (10:00)
--- NOTE | 2018-07-07 10:00 | NUR ---
PT. REPORTING INCISIONAL PAIN AT ABD. 10 ON A SCALE OF 0-10. MED. WITH DILAUDID 1MG. IVP.
[2018-07-07] MEDS ORDERED: SODIUM PHOSPHATES 20 MEQ in SODIUM CHL 0.9% 100 ML IV ONE (10:30)
--- NOTE | 2018-07-07 10:30 | NUR ---
PT. NO LONGER HAVING ANY PAIN OR DISCOMFORT.
[2018-07-07] MEDS: LABETALOL HCL 5 MG/ML ML 20ML VIAL IV PRN (11:41)
--- NOTE | 2018-07-07 11:41 | NUR ---
SBP 170'S-180'S ON TRIDIL GTT. MED. PT. WITH LABETALOL 5MG. IVP. SR, HR 70'S. MONITORING BP.
--- NOTE | 2018-07-07 12:07 | NUR ---
Nutrition Follow-up Notes (new PN) Wt.: 111.3 kg as of yesterday. Pt's s/p Low anterior resection with colorectal anastomosis (07/05/18), NPGT in place, on oxygen via nasal cannula, family members at bedside, denies any discomfort except for mod abdominal pain when rounded this morning. 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 Pt's usually has good appetite, eat meals regularly, NKFA and not into any special diets provider network manager. Pt's currently NPO with TPN @ 48 ml/hr providing 1320 kcal, 50 gms proteins, 1120 NPCs and 8% Fat. Pt with inadequate PN support d/t low initiation rate delivery of concentrated formula aeb current PN infusion meets 62% to 73% of est caloric needs and 39% to 47% of est protein needs. Discussed importance/benefits of PN support while remains NPO r/t current medical condition and he verbalized understanding. Noted pt's to receive tonight another TPN@ 67 ml/hr providing 1770 kcal, 70 gms proteins, 1490 NPCs and 17% Fat. Est. Needs ABW [id number] kcal (17-20 kcal/kgABW), 107-128 gms pro (1.0-1.2 gms/kgABW reassessed r/t s/p surgery, severe hypoalbuminemia, RFTs wnl). Will continue to monitor pertinent labs and reassess nutrient needs prn Labs: Gluc 160 H, BUN 4 L, Ca 7.6 L, Phos 1.9 L, AST 11 L, ALT 14 L, ALP 33 L, Tpro 5.4 L, Alb 2.4 L, Prealb 19.5 L, Trig 86 wnl. Skin: Chaitanya scale 16, mod risk, pt's medial abdomen incision dry and intact per funeral greeter. GI: Pt had 1 BM on 07/03/18 per funeral greeter. PES: Increased nutrient needs r/t acute/chronic medical condition aeb s/p surgery, severe hypoalbuminemia, NPO with PN support. Altered nutrition related lab values r/t current/chronic medical condition aeb elev RFT mild hypoalb Decreased nutrient needs r/t adiposity aeb pt`s high BMI of 41.9 kgm2 Will continue to monitor NPO status, PN tolerance, skin status, pertinent labs and weight trend. F/u in 2 to 3 days Rec.: 1.) If still NPO with PN support, consider gradual increase on calories and protein to meet at least 75% of nutrient needs. 2.) Advance gradually to oral diet when medically feasible. 3.) Refer to CDE/RD for further nutrition education and weight monitoring upon discharged. 4.) Continue current plan of care.
--- NOTE | 2018-07-07 12:10 | NUR ---
SBP REMAINS IN THE 170'S.
--- NOTE | 2018-07-07 14:01 | NUR ---
PT. HAVING ABD. PAIN AT INCISIONAL SITE 10 ON A SCALE OF 0-10. MED. WITH DILAUDID 1MG. IVP.
--- NOTE | 2018-07-07 14:25 | NUR ---
PT. NO LONGER HAVING ABD. PAIN AT INCISIONAL SITE.
--- NOTE | 2018-07-07 19:30 | NUR ---
SHIFT OPENING NOTE RECEIVED PATIENT AWAKE, ALERT AND ORIENTED X4. NO SOB, DISTRESS NOTED, BUT REPORTS PAIN 8/10 ABDOMINAL AND BACK. WILL MEDICATE ORDERED. INCISION TO ABDOMEN, DRESSING IS C/D/I. NIRMALA SEROSANGUINEOUS DRAINAGE. NITRO DRIP AT 190. ON 3L N/C POX 95%. PATIENT IS NPO WITH LEFT NARE NG TO LIS. BROWN OUTPUT NOTED. DEL CID DRAINING VANESA URINE. LEFT SUBCLAVIAN INFUSING TPN, NITRO AND D5.45 20KCL. INSTRUCTED ON POC AND TO CALL FOR ASSIST NEEDED. BED IS IN THE LOWEST POSITION WITH SIDE RAILS UP X2, CALL LIGHT IS WITHIN REACH.
[2018-07-07] MEDS ORDERED: TPN PER PHARMACY IV NR ×10 (20:00)
--- NOTE | 2018-07-07 20:00 | NUR ---
FAMILY AT BEDSIDE
--- NOTE | 2018-07-07 21:00 | NUR ---
FAMILY LEFT BEDSIDE FOR THE NIGHT
[2018-07-08] VITALS (69 sets, daily range): BP systolic 119–213; BP diastolic 63–118
--- NOTE | 2018-07-08 00:30 | NUR ---
ROUNDS PATIENT QUIETLY LAYING IN BED SLEEPING. NO SOB, DISTRESS OR PAIN NOTED. VS STABLE. NITRO DRIP AT 150. WILL CONTINUE TO CLOSELY MONITOR.
[2018-07-08] MEDS: HYDROmorphone HCL 2 MG/ML VL IV PRN ×5 (04:32→20:09)
[2018-07-08] MEDS: NITROGLYCERIN 50MG/250ML 250 ML IV SCH ×2 (05:00→17:58)
[2018-07-08] MEDS: D5W/SOD CHL 0.45%/KCL 20MEQ 1,000 ML IV SCH ×3 (05:18→22:24)
[2018-07-08] MEDS: ACCU-CHEK COMFORT CURVE STRIP VI SCH ×3 (05:18→18:08)
[2018-07-08] MEDS: DILTIAZEM HCL 25 MG/5 ML VIAL IV SCH ×6 (05:19→21:24)
[2018-07-08] MEDS: metroNIDAZOLE 500MG/100ML 100 ML IV SCH ×3 (05:19→22:24)
--- NOTE | 2018-07-08 05:25 | NUR ---
MORNING HYGIENE CARE FULL BED BATH PERFORMED. PARTIAL LINEN CHANGE DONE. GOWN CHANGED. ABDOMINAL INCISION CLEANSED WITH NS AND DRIED WITH STERILE GAUZE. NEW DRESSING PLACED ON TOP. ABDOMINAL BINDER REAPPLIED. PATIENT REPOSITIONED FOR COMFORT. TOLERATED IT WELL.
[2018-07-08] MEDS: InsuLIN REG 1unit/0.01ml Soln (100units/ml) SC SCH ×3 (06:00→18:08)
--- NOTE | 2018-07-08 06:25 | NUR ---
LABS OBTAINED FROM CENTRAL LINE SENT TO LAB VIA BULLET
[2018-07-08 06:30] LABS: Basophils # (auto) 0.1 uL; Basophils % (auto) 1.2 % (0.0-2.0); Eosinophils # (auto) 0.4 uL; Eosinophils % (auto) 5.1 % (0.0-7.0); Hematocrit 30.5 % (41.0-53.0); Hemoglobin 10.3 g/dL (13.5-17.5); Lymphocytes # (auto) 1.1 uL; Lymphocytes % (auto) 12.2 % (10.0-50.0); Mean Corpuscular Hemoglobin 27.4 pg (28.0-32.0); Mean Corpuscular Hgb Conc. 33.6 g/dL (32.0-36.0); Mean Corpuscular Volume 81.7 fL (80.0-100.0); Monocytes % (auto) 11.2 % (0.0-12.0); Neutrophils # (auto) 6.2 uL; Neutrophils % (auto) 70.3 % (37.0-80.0); Platelet Count (auto) 160 10^3/uL (140-450); Red Blood Cells 3.74 10^6/uL (4.5-5.90); White Blood Cell 8.7 10^3/uL (4.4-10.8)
--- NOTE | 2018-07-08 06:45 | NUR ---
END OF SHIFT PATIENT IS QUIETLY LAYING IN BED SLEEPING. NO SOB, DISTRESS OR PAIN NOTED. ON 3L N/C. NITRO DRIP AT 80. TPN AT 67. IV FLUIDS AT 100 WILL GIVE REPORT AND ENDORSE CARE TO THE DAY SHIFT RN.
[2018-07-08 06:50] LABS: Albumin 2.4 g/dL (3.4-5.0); Calcium 7.6 mg/dL (8.5-10.1); Potassium 4.1 mmol/L (3.5-5.1)
[2018-07-08 06:53] LABS: Magnesium 2.1 mg/dL (1.6-2.6); Phosphorus 3.8 mg/dL (2.5-4.90)
[2018-07-08 06:55] LABS: Bilirubin, Total 0.4 mg/dL (0.2-1.0); Total Protein 5.6 g/dL (6.4-8.2)
--- NOTE | 2018-07-08 07:30 | NUR ---
REPORT PT RESTING IN BED WITH VSS. NO DISTRESS NOTED AND APPEARS TO BE ASLEEP. CONTINUE TO MONITOR.
--- NOTE | 2018-07-08 08:30 | NUR ---
ASSESSMENT WOKE PT FOR ASSESSMENT. A/O X4. ABLE TO MOVE EXTREMITIES WEAKLY. PUPILS 3 AND BRISK. FOLLOWS SIMPLE COMMANDS. LUNGS CLEAR THROUGHOUT. O2 AT 3 L/M VIA NC WITH O2 SAT OF 96%. TELE SR [address] AND INVERTED T WAVE IN LEAD II AND ELEVATED ST IN LEAD V. PALPABLE PULSES TO ALL EXTREMITIES. NO EDEMA NOTED. UNABLE TO WEAR SCDS DUE TO PAIN IN HIS CALVES. ABD SOFT AND TENDER TO TOUCH. MIDLINE DRESSING IS CLEAN AND DRY. LLQ NIRMALA DRAIN WITH SMALL AMOUNT OF SEROSANGUINOUS FLUID DRAINING BUT DRESSING IS DRY. ABD BINDER IN PLACE. NGT IN PLACE TO LEFT NARES, + PLACEMENT AND TO LCS WITH BROWN FLUID DRAINING. DEL CID CATHETER DRAINING CLEAR VANESA URINE. TURNED FOR COMFORT TO HIS RIGHT SIDE. SKIN INTACT OTHER THAN SURGICAL INCISION. C/O ABD PAIN 9/10. MEDICATED WITH DILAUDID 1 MG IV. RAILS UP FOR PT SAFETY AND CONTINUE TO MONITOR.
[2018-07-08] MEDS: cefTRIAXone 1GM/50ML D5W 50 ML IV SCH (08:51)
[2018-07-08] MEDS: LISINOPRIL 20 MG TAB PO SCH ×2 (10:00→21:26)
[2018-07-08] MEDS: HCTZ 25 MG TAB PO SCH (10:00)
[2018-07-08] MEDS: METOPROLOL TARTRATE 25 MG TAB PO SCH ×2 (10:00→22:31)
[2018-07-08] MEDS: PANTOPRAZOLE 40 MG/10 ML VIAL IV SCH (10:19)
[2018-07-08] MEDS: ENALAPRILAT 1.25 MG/ML-1ML VIAL IV PRN (10:21)
--- NOTE | 2018-07-08 11:08 | NUR ---
MD/PHONE SPOKE WITH DR EUSEBIA WADE BY PHONE REGARDING PT'S BP AND WHETHER OKAY TO GET PT OOB WHILE ON NTG DRIP. HE IS INCREASING THE CATAPRES PATCH TO 0.3 MG/HR AND OKAY TO GET PT OOB.
--- NOTE | 2018-07-08 12:30 | NUR ---
PHYSICAL THERAPY KENT. Taylor, ASSISTED PT OOB AND TO THE CHAIR,. TOLERATED FAIRLY WELL BY THE PT. FAMILY AT BEDSIDE AND CONTINUE TO MONITOR.
[2018-07-08] MEDS ORDERED: hydrALAZINE HCL 20 MG/ML VL IV PRN (13:00)
--- NOTE | 2018-07-08 13:00 | NUR ---
PHONE/PAGED PAGED DR STARK AND LEFT MESSAGE LETTING HIM KNOW THAT PT IS PASSING GAS, DR MOHROD HERE AND WANTING TO KNOW IF THE NGT CAN COME OUT AND PO MEDS CAN BE ADMINISTERED.
[2018-07-08] MEDS ORDERED: cloNIDine 0.3 mg/24hr 7DAY PATCH TD SCH (13:33)
--- NOTE | 2018-07-08 13:45 | NUR ---
PHYSICAL THERAPY Claudia CARMEN, ASSISTED PT BACK TO BED. TOLERATED WELL BY PT. MEDICATED WITH TORADOL 30 MG IV FOR C/O ABD PAIN. CONTINUE TO MONITOR. RAILS UP X4 FOR PT SAFETY.
--- NOTE | 2018-07-08 13:55 | NUR ---
MD/PHONE SPOKE WITH DR STARK REGARDING DR WADE'S INQUIRY IF NGT CAN BE DC'D AND PT STARTED ON PO MEDS. OKAYS FOR NGT TO BE DC'D, MAY HAVE ICE CHIPS AND SIPS OF WATER WITH PO MEDS. ORDER ALSO RECEIVED FOR TORADOL 30 MG IV Q 6 HRS PRN. FIRST DOSE GIVEN AND NGT CLAMPED. WILL MONITOR FOR ANY NAUSEA OR VOMITING.
[2018-07-08] MEDS ORDERED: KETOROLAC TROMETH 30 MG/ML 1ML VIAL ONE (13:58)
--- NOTE | 2018-07-08 16:10 | NUR ---
PAIN/NGT PT WITH C/O MIDLINE ABD PAIN 10/08 ABD MEDICATED WITH DILAUDID 1 MG IV. ALSO NO N/V SINCE NGT CLAMPED AND HAS BEEN TAKING SIPS OF WATER, I DC'D PT'S NGT. TOLERATED WELL BY PT.
[2018-07-08] MEDS: hydrALAZINE HCL 20 MG/ML VL IV PRN ×2 (19:00→23:52)
--- NOTE | 2018-07-08 19:00 | NUR ---
GIVEN HYDRALAZINE 10MG IV FOR HIGH BP. CONTINUE TO MONITOR BP.
--- NOTE | 2018-07-08 19:30 | NUR ---
Opening Shift Note Assumed care of patient, awake and alert, called and c/o pain at abdomen, will administer pain medicine for Pt as order, when it's due. Breathing and signing from time to time, on RA breathing,O2sat 96%, No S/S of distress. No NG, only sip of water. TLC at right subclavian, CDI site, infusing TPN, Tridil and IV with lytes. Robles's cath hung to gravity with clear straw color. Bed in low position, call light with in reach, fall and safety precaution in place, all alarms are audible. SCD on both legs. Instructed on POC and to call for assist PRN, will continue to monitor for changes Q1hr and PRN.
--- NOTE | 2018-07-08 19:30 | NUR ---
REPORT REPORT GIVEN TO TOYIN MARTINEZ RN.
[2018-07-08] MEDS ORDERED: TPN PER PHARMACY IV NR ×10 (20:00)
--- NOTE | 2018-07-08 20:10 | NUR ---
Hypertension/ pain Pt has high BP and severe pain, administered Pain killer as order, will continue to monitor. Addendum: 07/09/18 at 0156 by Maxine Aiken RN 21.30pm Hypertension sustained, administered Cardizem, and Zestril PO, will hold Lopressor for now due to HR in the 60's, continue to monitor. 22.31pm Hypertension sustained, and c/o severe pain at the abdomen. Administered Lopressor PO as order and will administer Pain killer. Continue care. 23.30pm Pain controlled, hypertension sustained. Will administer Apresoline IV PRN and continue monitoring. 00.30am BP decreased to 143/56 after Apresoline, Continue care.
[2018-07-08] MEDS: KETOROLAC TROMETH 30 MG/ML 1ML VIAL IV PRN (22:39)
[2018-07-09] VITALS (54 sets, daily range): BP systolic 108–217; BP diastolic 46–141
--- NOTE | 2018-07-09 | NUR ---
Condition update Pt awake and restlessness, called every 30mins-2 hrs for pain and comfort, turning and adjusting position himself on the bed, unable to rest comfortably, assisted Pt with wires/ IV line and linens. Pain better after Toradol IV but worsen now because the coughing. Pt has good strong coughing, cough out small amount of white sputum, used Yankauer himself. Refused to get Accu Check done at the fingers, insisted and stated that other nurses draw the blood from central line for the Accu Check. Will check nurses note and attempt to explain again to Pt about Accu Check/ drawing blood from central line/ wasting blood/ infection risk.
[2018-07-09] MEDS: HYDROmorphone HCL 2 MG/ML VL IV PRN ×2 (00:32→08:19)
--- NOTE | 2018-07-09 00:38 | NUR ---
Condition update/ pain/ refused Accu Check After explanation, Pt insisted and refused Accu Check. Still restlessness and c/o back pain 01/08, asked for pain killer. Pain killer given as order. Hypertension is better after PRN Apresoline 10mg IV, Nitro still infusing at 58/hr. Continue monitoring.
--- NOTE | 2018-07-09 01:30 | NUR ---
Condition update/ anxious Pt unable to sleep, restlessness with mild anxious. Pain is controlled with pain killers. Discussed with Pt, Pt agreed to take sleeping pill. Will administer sleeping pill as order, and continue to monitor.
[2018-07-09] MEDS: TEMAZEPAM 15 MG CAP PO PRN ×2 (01:41→21:50)
--- NOTE | 2018-07-09 02:35 | NUR ---
Condition update /Hypertension BP increased to 160's -170's , Pt unable to sleep after Restoril given , medicated Pt with Apresoline, will continue to monitor.
[2018-07-09] MEDS: hydrALAZINE HCL 20 MG/ML VL IV PRN ×2 (02:44→23:14)
--- NOTE | 2018-07-09 03:43 | NUR ---
Pain Pt called, c/o back pain , pain killer is not due now. Discussed with Pt, agreed to use warm pack. Applied warm pack to lower right back for Pt. Continue care.
[2018-07-09 05:29] LABS: Basophils # (auto) 0.1 uL; Basophils % (auto) 0.8 % (0.0-2.0); Eosinophils # (auto) 0.7 uL; Eosinophils % (auto) 9.6 % (0.0-7.0); Hematocrit 32.2 % (41.0-53.0); Hemoglobin 10.9 g/dL (13.5-17.5); Lymphocytes % (auto) 14.8 % (10.0-50.0); Mean Corpuscular Hemoglobin 27.4 pg (28.0-32.0); Mean Corpuscular Hgb Conc. 33.7 g/dL (32.0-36.0); Mean Corpuscular Volume 81.3 fL (80.0-100.0); Monocytes # (auto) 0.8 uL; Monocytes % (auto) 11.8 % (0.0-12.0); Neutrophils # (auto) 4.4 uL; Platelet Count (auto) 182 10^3/uL (140-450); Red Blood Cells 3.97 10^6/uL (4.5-5.90); Red Cell Distribution Width 16.2 % (11.8-14.3)
--- NOTE | 2018-07-09 05:40 | NUR ---
Condition update/ OOB Pt called and asked to go to the bathroom for BM. Explained about Pt's condition, and reason why Pt should not get OOB now, informed Pt about safety issues, Pt insisted and being aggressive. Pt walked to the bathroom by self, stable gait, on room air. At the time Pt came back from the restroom, Pt 's SOB with exertion, O2sat 100% on room air, HR 70's, SBP 170's. Pt did not have a BM, just passing gases, partial linens changed. Will continue to monitor.
[2018-07-09 05:47] LABS: Albumin 2.4 g/dL (3.4-5.0); Magnesium 2.3 mg/dL (1.6-2.6); Potassium 3.9 mmol/L (3.5-5.1)
[2018-07-09 05:50] LABS: BUN/Creatinine Ratio 12.6; Bilirubin, Total 0.3 mg/dL (0.2-1.0); Phosphorus 3.2 mg/dL (2.5-4.90); Total Protein 5.8 g/dL (6.4-8.2)
[2018-07-09] MEDS: InsuLIN REG 1unit/0.01ml Soln (100units/ml) SC SCH ×5 (06:00→23:45)
[2018-07-09] MEDS: DILTIAZEM HCL 25 MG/5 ML VIAL IV SCH ×4 (06:02→14:23)
[2018-07-09] MEDS: metroNIDAZOLE 500MG/100ML 100 ML IV SCH (06:02)
[2018-07-09] MEDS: ACCU-CHEK COMFORT CURVE STRIP VI SCH ×5 (06:32→23:45)
--- NOTE | 2018-07-09 07:35 | NUR ---
AMBULATION PATIENT OUT OF BED TO BATHROOM. PER PATIENT HE HAD A BOWEL MOVEMENT BUT FLUSHED THE TOILET BEFORE PRIMARY RN COULD SEE. PATIENT BACK TO BED WITH ALL MONITORS APPLIED
--- NOTE | 2018-07-09 07:45 | NUR ---
PARTIAL LINEN CHANGE
[2018-07-09] MEDS: D5W/SOD CHL 0.45%/KCL 20MEQ 1,000 ML IV SCH ×2 (08:03→19:58)
[2018-07-09] MEDS: NITROGLYCERIN 50MG/250ML 250 ML IV SCH ×2 (08:04→15:50)
[2018-07-09] MEDS: cefTRIAXone 1GM/50ML D5W 50 ML IV SCH (08:19)
[2018-07-09] MEDS: KETOROLAC TROMETH 30 MG/ML 1ML VIAL IV PRN ×2 (09:40→15:43)
--- NOTE | 2018-07-09 09:40 | NUR ---
PAIN PATIENT REPORTING BACK PAIN. PAIN MEDICATION GIVEN ORDERED. PATIENT ALSO OFFERED ALTERNATIVES OTHER THEN PAIN MEDICATION SUCH REPOSITIONING AND PILLOWS. PATIENT VERBALIZED UNDERSTANDING
[2018-07-09] MEDS: PANTOPRAZOLE 40 MG/10 ML VIAL IV SCH (09:41)
[2018-07-09] MEDS: METOPROLOL TARTRATE 25 MG TAB PO SCH ×2 (09:41→21:52)
[2018-07-09] MEDS: HCTZ 25 MG TAB PO SCH (09:41)
[2018-07-09] MEDS: LISINOPRIL 20 MG TAB PO SCH ×2 (09:42→21:51)
--- NOTE | 2018-07-09 10:31 | NUR ---
PT Patient refused to be OOB during morning PT visit. Offered to come back after lunch, pt agreed. KERI Weldon was notified of pt's refusal. Addendum: 07/09/18 at 1033 by RIMMA MALIN PTT Amended: Links added.
--- NOTE | 2018-07-09 12:54 | NUR ---
DRESSING CHANGED ORDERED
[2018-07-09] MEDS ORDERED: BACLOFEN 10 MG TAB PO PRN (13:15)
--- NOTE | 2018-07-09 14:32 | NUR ---
PT Patient continue to refuse PT or OOB activities and stated he has been getting himself out to toilet by himself. KERI Weldon was informed of pt's refusal. Addendum: 07/09/18 at 1434 by RIMMA MALIN PTT Amended: Links added.
--- NOTE | 2018-07-09 14:32 | NUR ---
DR. STARK PAGELg
[2018-07-09] MEDS: MINOXIDIL 2.5 MG TAB PO SCH ×2 (18:11→21:53)
[2018-07-09] MEDS ORDERED: TPN PER PHARMACY IV NR ×10 (20:00)
[2018-07-10] VITALS (18 sets, daily range): BP systolic 94–186; BP diastolic 48–86
[2018-07-10] MEDS: ENALAPRILAT 1.25 MG/ML-1ML VIAL IV PRN (00:06)
--- NOTE | 2018-07-10 02:35 | NUR ---
BM: Pt ambulated to restroom for BM w/ assistance. Pt steady on feet, but assistance needed for IV pump/lines, NIRMALA drain, and aguilera catheter. Pt assisted back to bed without incident.
[2018-07-10] MEDS: ACCU-CHEK COMFORT CURVE STRIP VI SCH ×4 (05:59→23:22)
[2018-07-10] MEDS: InsuLIN REG 1unit/0.01ml Soln (100units/ml) SC SCH ×4 (05:59→23:21)
[2018-07-10 06:26] LABS: Basophils # (auto) 0.1 uL; Basophils % (auto) 0.7 % (0.0-2.0); Eosinophils # (auto) 0.6 uL; Eosinophils % (auto) 7.4 % (0.0-7.0); Hematocrit 36.1 % (41.0-53.0); Hemoglobin 12.1 g/dL (13.5-17.5); Lymphocytes # (auto) 1.1 uL; Lymphocytes % (auto) 13.9 % (10.0-50.0); Mean Corpuscular Hemoglobin 27.3 pg (28.0-32.0); Mean Corpuscular Hgb Conc. 33.4 g/dL (32.0-36.0); Mean Corpuscular Volume 81.6 fL (80.0-100.0); Monocytes # (auto) 0.8 uL; Monocytes % (auto) 9.8 % (0.0-12.0); Neutrophils # (auto) 5.3 uL; Neutrophils % (auto) 68.2 % (37.0-80.0); Platelet Count (auto) 221 10^3/uL (140-450); Red Blood Cells 4.43 10^6/uL (4.5-5.90); White Blood Cell 7.7 10^3/uL (4.4-10.8)
[2018-07-10 06:45] LABS: Potassium 3.9 mmol/L (3.5-5.1)
[2018-07-10 06:56] LABS: Albumin 2.5 g/dL (3.4-5.0); BUN/Creatinine Ratio 15.2; Bilirubin, Total 0.3 mg/dL (0.2-1.0); Calcium 8.3 mg/dL (8.5-10.1); Magnesium 2.4 mg/dL (1.6-2.6); Phosphorus 4.1 mg/dL (2.5-4.90); Total Protein 6.2 g/dL (6.4-8.2)
[2018-07-10] MEDS: KETOROLAC TROMETH 30 MG/ML 1ML VIAL IV PRN ×2 (06:59→20:36)
--- NOTE | 2018-07-10 07:45 | NUR ---
PATIENT AWAKE, ALERT AND ORIENTED X 4, MOVES ALL EXTREMITIES. DENIES PAIN AT THIS TIME. TPN INFUSING THOROUGH LEFT SUBCLAVIAN TLC. DEL CID PRESENT AND DRAINING TO GRAVITY. STABLE VITALS. BED IN LOW POSITION AND CALL LIGHT WITHIN REACH. EDUCATED TO CALL IS NEEDED.
--- NOTE | 2018-07-10 09:01 | NUR ---
PATIENTS AT NURSES STATION. UPDATED ON STATUS THROUGHOUT THE NIGHT. PATIENT CURRENTLY SLEEPING.
[2018-07-10] MEDS: cefTRIAXone 1GM/50ML D5W 50 ML IV SCH (09:25)
[2018-07-10] MEDS: METOPROLOL TARTRATE 25 MG TAB PO SCH ×2 (10:00→21:41)
[2018-07-10] MEDS ORDERED: DILTIAZEM HCL 120MG ER CAP PO SCH (10:00)
[2018-07-10] MEDS: HCTZ 25 MG TAB PO SCH (10:16)
[2018-07-10] MEDS: LISINOPRIL 20 MG TAB PO SCH ×2 (10:16→21:42)
[2018-07-10] MEDS: MINOXIDIL 2.5 MG TAB PO SCH ×2 (10:16→21:41)
[2018-07-10] MEDS: PANTOPRAZOLE 40 MG/10 ML VIAL IV SCH (10:16)
[2018-07-10] MEDS: D5W/SOD CHL 0.45%/KCL 20MEQ 1,000 ML IV SCH (10:18)
--- NOTE | 2018-07-10 10:18 | NUR ---
DR WADE AT BEDSIDE NEW ORDERS RECEIVED
--- NOTE | 2018-07-10 10:30 | NUR ---
TPN- TITRATED TPN TO 40ML/HR FOR WEANING PATIENT HAS BEEN ADVANCED TO SOLID FOOD
--- NOTE | 2018-07-10 11:01 | NUR ---
Aguilera catheter dc'd Order to discontinue aguilera catheter. Aguilera dc'd with clean technique following deflation of balloon. Patient tolerated well with no complaints of pain. Continue care.
--- NOTE | 2018-07-10 11:05 | NUR ---
AMBULATION PATIENT AMBULATED 5 TIMES AROUND NURSES STATION WITH STANDBY ASSISTANCE, ON ROOM AIR WITH PHYSICAL THERAPIST. NO DISTRESS NOTED
--- NOTE | 2018-07-10 11:53 | NUR ---
BED ASSIGNMENT - ROOM 214B REPORT GIVEN TO MARU SAAVEDRA PATIENT TRANSFERRED WITH ALL BELONGS. PATIENTS NOTIFIED. PATIENT STABLE AT TIME OF TRANSFER
--- NOTE | 2018-07-10 12:00 | NUR ---
JAZ[facility] pt transferred to floor MELA MCKEON transfered to via [facility] on monitoring and evaluation advisor and portable 02. All patient medications and personal belongings transfered with patient to receiving floor. Patient care transfered to Neo Santos RN.
--- NOTE | 2018-07-10 12:27 | NUR ---
Nutrition Follow-up Notes Wt.: 132.5 kg Pt's s/p colorectal anastomosis (07/05/18), sleeping with no family by bedside. Pt's adavcned to full liq diet now with iandequte PO of < 50% x 4 per RN doc . pt also on TPN @ 80 ml/hr providing 1990 kcal, 100 gms proteins, 1590 NPCs. Pt with adequate PN support d/t high initiation rate delivery of concentrated formula aeb current PN infusion meets 92-109% of est caloric needs and 78-93% of est protein needs. Est. Needs ABW [id number] kcal (17-20 kcal/kgABW), 107-128 gms pro (1.0-1.2 gms/kgABW reassessed r/t s/p surgery, severe hypoalbuminemia, RFTs wnl). Will continue to monitor pertinent labs and reassess nutrient needs prn Labs: GLU 127 H, ALB 2.5 L, CA 8.3 L. Skin: Chaitanya scale 18, mod risk, pt's medial abdomen incision dry and intact per plant worker. GI: Pt had 1 BM on 07/09/18 per plant worker. PES: Increased nutrient needs r/t acute/chronic medical condition aeb s/p surgery, severe hypoalbuminemia, NPO with PN support. Altered nutrition related lab values r/t current/chronic medical condition aeb elev RFT mild hypoalb Decreased nutrient needs r/t adiposity aeb pt`s high BMI of 41.9 kgm2 Will continue to monitor PO intake, PN tolerance, skin status, pertinent labs and weight trend. F/u in 2 to 3 days Rec.: 1.) Consider ensure enlive 1 carton bid. 2.) Advance gradually diet when medically feasible. 3.) Refer to CDE/RD for further nutrition education and weight monitoring upon discharged. 4.) Taper off PN as pt tolerates PO 5) Continue current plan of care.
--- NOTE | 2018-07-10 18:00 | NUR ---
1800 BLOOD SUGAR CHECK WAS PERFORMED AFTER THE PATIENT ATE HIS DINNER AND THE RESULTS ON GLUCOMETER READ "HI." BLOOD SUGAR WAS RE-CHECKED AND READ "HI" AGAIN. PATIENT STATED THAT HE USUALLY RUNS LOW AND BECAUSE HE HAD JUST EATEN HE DOES NOT WANT INSULIN DUE TO THE POSSIBILITY OF INACCURATE VALUES.
--- NOTE | 2018-07-10 18:30 | NUR ---
NIRMALA DRAIN: 25 CC OF SEROSANGUINOUS DRAINAGE, WITHOUT ODOR.
--- NOTE | 2018-07-10 19:30 | NUR ---
Opening Shift Note Received report from KERI Moore. Assumed care of patient, awake and alert. at bedside. No S/S of distress/SOB or pain. Patient has a mid abdominal incision site with partial leaking on lower end. Covered with gauze and tape. Bed locked in lowest position, side rails upx2, call light within reach. Instructed on POC and to call for assist PRN, will continue to monitor for changes Q1hr and PRN.
[2018-07-10] MEDS ORDERED: TPN PER PHARMACY IV NR ×10 (20:00)
--- NOTE | 2018-07-10 23:07 | NUR ---
Patient mid abdominal incision site on lower end leaking clear fluid. Patient states that it was leaking during the day time as well. Applied gauze pad and secured with medipore tape. Patient requested the use of abdominal binder.
[2018-07-11] MEDS: D5W/SOD CHL 0.45%/KCL 20MEQ 1,000 ML IV SCH (00:54)
[2018-07-11 05:00] VITALS: BP 111/50
[2018-07-11] MEDS: KETOROLAC TROMETH 30 MG/ML 1ML VIAL IV PRN (05:12)
--- NOTE | 2018-07-11 05:30 | NUR ---
Patient refusing blood sugar check at this time.
[2018-07-11] MEDS: ACCU-CHEK COMFORT CURVE STRIP VI SCH (05:31)
[2018-07-11] MEDS: InsuLIN REG 1unit/0.01ml Soln (100units/ml) SC SCH (05:31)
--- NOTE | 2018-07-11 08:00 | NUR ---
Opening Shift Note Assumed care of patient, awake and alert. No S/S of distress/SOB or pain. With abdominal dressing draining to serosanguinous output in minimal amount. Instructed on POC and to call for assist PRN, will continue to monitor for changes Q1hr and PRN.
--- NOTE | 2018-07-11 09:30 | NUR ---
[id number].
--- NOTE | 2018-07-11 09:30 | NUR ---
Accucheck-123mg/dl. Dr. Navarrete aware.
--- NOTE | 2018-07-11 09:50 | NUR ---
Dr. Navarrete at bedside, new orders received. Patient is cleared for discharge per Dr. Wynne. NIRMALA drain removed by Dr. Navarrete, applied dressing on the site secured with tegaderm, reapplied abdominal binder.
[2018-07-11] MEDS: PANTOPRAZOLE 40 MG/10 ML VIAL IV SCH (10:09)
[2018-07-11] MEDS: cefTRIAXone 1GM/50ML D5W 50 ML IV SCH (10:09)
[2018-07-11] MEDS: MINOXIDIL 2.5 MG TAB PO SCH (10:10)
[2018-07-11] MEDS: HCTZ 25 MG TAB PO SCH (10:11)
[2018-07-11 11:49] VITALS: BP 112/68
--- NOTE | 2018-07-11 12:10 | NUR ---
MRSA swab both nares sent to Lab.
--- NOTE | 2018-07-11 12:25 | NUR ---
Discharge instructions given as ordered. Encourage to follow up with PMD Dr. Hsu on 07/31/18 at 1140 #[phone] located [place] [id number] [facility] [place], [place]. Follow up appointment with Dr. Wynne on 07/17/18 at 0924 #[phone]. [phone] [place] [id number] [facility] [place] [address]. All questions and concerns addressed. Patient verbalized understanding. Medication reconciliation form completed and copy given to patient. IV removed with catheter intact, pressure dressing applied. Telemetry unit returned to [facility]. Patient taken to vehicle via wheelchair with all personal belongings, accompanied by staff and family member. No distress noted at time of departure.
== END 2018-07-11 12:25 | disposition home or self-care (01) | DRG 231 ==
LOC: ER 17:59 → OVERFLOW 06-29 00:47 → WEST WING 06-29 05:38 → TELE-WESTW 07-02 14:36 → WEST WING 07-03 15:13 → DOU IN ICU 07-04 23:27 → TELE-CENTR 07-10 12:18
PROVIDERS: ADMIT Nurse Practitioner; ATTEND Internal Medicine
PROC: 0DBL8ZX Excision of Transverse Colon, Via Natural or Artificial Opening Endoscopic, Diagnostic (ICD-10-PCS; 2018-07-02)
PROC: 0DBN8ZX Excision of Sigmoid Colon, Via Natural or Artificial Opening Endoscopic, Diagnostic (ICD-10-PCS; principal; 2018-07-02 11:45)
PROC: 0DBM0ZZ Excision of Descending Colon, Open Approach (ICD-10-PCS; 2018-07-04)
PROC: 0DBP0ZZ Excision of Rectum, Open Approach (ICD-10-PCS; 2018-07-04)
DX: C18.6 Malignant neoplasm of descending colon (principal); N17.0 Acute kidney failure with tubular necrosis; J96.00 Acute respiratory failure, unspecified whether with hypoxia or hypercapnia; E43 Unspecified severe protein-calorie malnutrition; R65.10 Systemic inflammatory response syndrome (SIRS) of non-infectious origin without acute organ dysfunction; E66.01 Morbid (severe) obesity due to excess calories; C19 Malignant neoplasm of rectosigmoid junction; E83.51 Hypocalcemia; I11.9 Hypertensive heart disease without heart failure; K40.90 Unilateral inguinal hernia, without obstruction or gangrene, not specified as recurrent; K52.9 Noninfective gastroenteritis and colitis, unspecified; K57.30 Diverticulosis of large intestine without perforation or abscess without bleeding; F41.9 Anxiety disorder, unspecified; I16.1 Hypertensive emergency; D12.3 Benign neoplasm of transverse colon; Z90.49 Acquired absence of other specified parts of digestive tract; Z85.038 Personal history of other malignant neoplasm of large intestine; I25.2 Old myocardial infarction; Z86.73 Personal history of transient ischemic attack (TIA), and cerebral infarction without residual deficits; Z68.41 Body mass index [BMI] 40.0-44.9, adult
CPT/HCPCS: 36415; 36600; 71045; 74176; 80053; 81001; 82040; 82150; 82270; 82805; 82962; 83605; 83690; 83735; 83880; 84100; 84478; 84484; 85014; 85018; 85025; 85610; 85730; 86850; 86900; 86901; 87040; 87070; 87081; 87205; 93005; 93306; 94002; 94003; 96361; 96374; 97116; 97163; 97530; A6257; C9113; G0378; J0330; J0690; J0696; J1100; J1815; J1885; J2250; J2704; J3490; Q9956